=== PATIENT | male | born 1990 | race Caucasian/White ===

== ENCOUNTER 2021-01-31 18:11 | Emergency (ER) | payer MEDICAID ==
[~2021-01-31] VITALS: Ht 175.3 cm; Wt 137.5 kg
[~2021-01-31 18:11] MED LIST: OXYC1TAB14 PO; POLY17PO5 PO
[2021-01-31 18:48] VITALS: BP 156/71
--- NOTE | 2021-01-31 22:10 | NUR ---
called in the lobby. no answer
--- NOTE | 2021-01-31 22:51 | NUR ---
called 23 times. not in the lobby. no answer
== END 2021-01-31 22:53 | disposition left against medical advice (07) ==
LOC: ED 22:50
DX: K62.5 Hemorrhage of anus and rectum (principal); Z53.21 Procedure and treatment not carried out due to patient leaving prior to being seen by health care provider